=== PATIENT | male | born 1950 | race American Indian/Alaskan Native ===

== ENCOUNTER 2019-04-08 07:38 | Day surgery (SDC) | payer MEDICARE ==
[2019-04-08] MEDS ORDERED: NORVASC PO ONE (08:09)
--- NOTE | 2019-04-08 08:10 | Anesthesia Consultation ---
Anesthesia Consult and Med Hx Date of service: 04/08/19 - Airway Anesthetic Teeth Evaluation: Partials ROM Head & Neck: Adequate Mental/Hyoid Distance: Adequate Mallampati Class: Class III Intubation Access Assessment: Possibly Difficult - Pulmonary Exam CTA: Yes - Cardiac Exam Cardiac Exam: RRR - Pre-Operative Health Status ASA Pre-Surgery Classification: ASA3 Proposed Anesthetic Plan: General - Pulmonary Hx Smoking: Yes (1/2-1 PPD X 10 YRS) Hx Respiratory Symptoms: No COPD: No Hx Sleep Apnea: No (RANDALL PRE SCREEN HIGH RISK) - Cardiovascular System Hx Hypertension: Yes (will give home dose amlodipine in preop) Hx Heart Attack/AMI: No Hx Percutaneous Transluminal Coronary Angioplasty (PTCA): No - Central Nervous System Hx Seizures: No CVA: No - Gastrointestinal Hx Gastroesophageal Reflux Disease: No - Endocrine Hx Renal Disease: No Hx Liver Disease: No Hx Insulin Dependent Diabetes: No Hx Non-Insulin Dependent Diabetes: No Hx Thyroid Disease: No - Other Systems Hx Alcohol Use: Yes (WINE QD) Hx Substance Use: Yes (MARIJUANA 2 X WEEK) Hx Cancer: Yes (Hx prostate Ca) Hx Obesity: No - Additional Comments Anesthesia Medical History Comments: No hx anesthetic complications.
--- NOTE | 2019-04-08 08:11 | Anesthesia Day of Surgery ---
Anesthesia Day of Surgery - Day of Surgery Patient Examined: Yes Patient H&P Reviewed: Yes Patient is NPO: Yes
[2019-04-08] MEDS ORDERED: LACTATED RINGERS 1,000 ML IV SCH (09:00)
[2019-04-08] MEDS ORDERED: ANCEF/STERILE WATER 2 GM/20 ML IV NR (09:00)
[2019-04-08] MEDS ORDERED: DILAUDID ONE (10:01)
[2019-04-08] MEDS ORDERED: DIPRIVAN 10 MG/ML IV ONE (10:01)
[2019-04-08] MEDS ORDERED: WATER FOR IRRIG STERILE IR ONE ×4 (10:26)
[2019-04-08] MEDS ORDERED: XYLOCAINE MPF 2% ONE (10:27)
[2019-04-08] MEDS ORDERED: ZOFRAN ONE ×2 (11:28→13:40)
--- NOTE | 2019-04-08 11:33 | Short Stay Summary ---
Short Stay Documentation Date of service: 04/08/19 - History H&P: obtained from office - Allergies and Medications Current Medications: Allergies No Known Allergies Allergy (Verified 04/01/19 15:19) Home Medications Medication Instructions Recorded Confirmed Last Taken Type amLODIPine [Norvasc] 10 mg PO DAILY 04/01/19 04/08/19 04/08/19 08:50 History Active Medications Cefazolin Sodium (Ancef/Sterile Water 2 Gm/20 Ml) 2 gm IV PREOP NR Stop: 04/08/19 23:59 Fentanyl (Sublimaze) 50 mcg IV Q5MIN PRN PRN Reason: Pain , Severe (7-10) Stop: 04/08/19 18:00 Lactated Ringer's (Lactated Ringers) 1,000 mls @ 100 mls/hr IV DIRECT ANDREW Last Admin: 04/08/19 08:55 Dose: 100 mls/hr Documented by: - Brief post op/procedure progress note Date of procedure: 04/08/19 Pre-op diagnosis: hematuria Post-op diagnosis: other (bladder stone 5cm) Procedure: cysto, rpg, holmium laser bladder stone Surgeon: AKILASH CONSTANTINO Estimated blood loss: minimal Condition: stable - Hospital course Hospital course: ultram,norco, bactrim on chart - Disposition Condition at discharge: Stable Disposition: DC-01 TO HOME OR SELFCARE Short Stay Discharge Plan Follow up with: BOGDAN AARON MD [Primary Care Provider] - 7 Days
[2019-04-08] MEDS: SUBLIMAZE IV PRN ×2 (11:50→12:05)
[2019-04-08] MEDS ORDERED: APRESOLINE IV PRN (12:41)
[2019-04-08 13:52] VITALS: BP 165/77
[2019-04-08] MEDS ORDERED: ZOFRAN IV PRN (13:54)
--- NOTE | 2019-04-08 14:36 | Fluoroscopy Report ---
FLUOROSCOPY RETROGRADE UROGRAPHY: HISTORY: Hematuria. FINDINGS: Fluoroscopy was provided by radiology during retrograde urography by the urologist. 8 fluoroscopic images were captured. There is adequate filling of the ureters and intrarenal collecting systems with no filling defects or stricture identified. The right renal pelvis and calyces appear slightly irregular throughout this exam is of uncertain significance. Please correlate with the procedural notes. A bladder stone was seen. Laser was used to break up the stone fragments were removed with a grasper. IMPRESSION: Bladder stone removal. Slightly irregular appearance of the proximal right collecting system. Please correlate with the procedural notes.
--- NOTE | 2019-04-08 15:09 | Post Anesthesia Evaluation ---
- Post Anesthesia Evaluation Patient Participated: Yes Airway Patent: Yes Stable Respiratory Function: Yes Nausea/Vomiting: Yes (improved with IV antiemetics) Temp > 96.8F: Yes Pain Manageable: Yes Adequeate Hydration: Yes Anesthesia Complications: No
--- NOTE | 2019-04-08 17:01 | Operative Report ---
PREOPERATIVE DIAGNOSES: Hematuria and prostate cancer. POSTOPERATIVE DIAGNOSES: Hematuria and prostate cancer, 5-cm bladder stone, intravesical clip. PROCEDURES: Cystoscopy, removal of foreign body, bilateral retrograde pyelograms, holmium laser lithotripsy of bladder stone. SURGEON: Jez Pitts MD ANESTHESIA: General. ESTIMATED BLOOD LOSS: Minimal. FLUIDS: Crystalloid. COMPLICATIONS: No complications. INDICATIONS: This patient is a 68-year-old gentleman known to my service, underwent radical retropubic prostatectomy in 2006 at this institution. He has done well from his cancer standpoint; however, he presented to the office recently with hematuria, presents now for surgical intervention. DESCRIPTION OF PROCEDURE: The patient was taken to the operative suite, placed in a supine position. After adequate general anesthesia, placed in a dorsal lithotomy position, prepped and draped in a sterile fashion. Manager Audio film revealed about 5-cm stone. Cystoscopy was performed, normal urethra. A stone could be appreciated at the bladder neck. Also, a clip at the 5 o'clock position at the bladder neck. The clip was removed separately and the bilateral retrograde pyelograms were obtained with an 8-English angle-tipped catheter and required a wire to advance up the ureter. No hydronephrosis could be appreciated. No filling defects, no bladder tumors were noted as I mentioned 5-cm bladder stone could be appreciated. Using initially a 200 micron holmium laser lithotripsy was performed. We burned out that fiber and therefore, I used a 500 micron fiber with better fragmentation; however, this would burn out as well and then a third and final 500 micron fiber. I was able to break up all the stones, we evacuated out the fragments and was sent for stone analysis again to the patient. Rectal exam was benign. His bladder was drained. He was extubated and taken to recovery room. He will go home on Bactrim, Ultram and [place]. JOB# [id number] [facility]
== END 2019-04-08 07:39 | disposition home or self-care (01) ==
LOC: OR 07:38
PROVIDERS: ATTEND Urology
DX: N21.0 Calculus in bladder (principal); C61 Malignant neoplasm of prostate; R31.9 Hematuria, unspecified; F17.210 Nicotine dependence, cigarettes, uncomplicated; Z79.899 Other long term (current) drug therapy; Z72.89 Other problems related to lifestyle; Z98.890 Other specified postprocedural states
CPT/HCPCS: 36415; 52317; 74420; 82365; A4217; C1726; C1758; J0360; J0690; J1170; J2405; J2704; J3010; J7120; Q9967